=== PATIENT | female | born 1965 | race Caucasian/White ===

== ENCOUNTER 2016-08-15 15:32 | Emergency (ER) | payer OTHER ==
[2016-08-15 17:05] LABS: RED BLOOD COUNT 4.25 M/UL (4.00-5.10); WHITE BLOOD COUNT 5.6 K/UL (4.5-11.0)
[2016-08-15 17:35] LABS: BUN/CREATININE RATIO 16 (0-10)
== END 2016-08-15 21:15 | disposition home or self-care (01) ==
LOC: ER1 15:32
PROVIDERS: Physician Assistant
DX: R07.89 Other chest pain (principal)
CPT/HCPCS: 36415; 71020; 80053; 82550; 82553; 83874; 84484; 85025; 85379; 93005; 99285

== ENCOUNTER → 2016-08-17 | Outpatient (CLI) | payer OTHER | LOC: NM 09:00 | DX: R07.9 Chest pain, unspecified (principal) | CPT/HCPCS: 78452; 93017; A9502 ==

== ENCOUNTER → 2022-01-03 | Outpatient (CLI) | payer OTHER ==
[~2022-01-03] MED LIST: AUGMENTIN 875-1 EACH PO; BENTYL 10MG CAP10 MG PO; ZOFRAN ODT 4 MG4 MG SL; ZOFRAN4 MG PO
== END ==
LOC: NM 08:56
DX: R07.9 Chest pain, unspecified (principal); I49.1 Atrial premature depolarization
CPT/HCPCS: 78452; 93017; A9502